=== PATIENT | male | born 1970 | race Caucasian/White ===

== ENCOUNTER 2016-11-19 09:30 | Day surgery (SDC) | payer OTHER ==
[~2016-11-19] VITALS: Ht 193 cm; Wt 92.3 kg
[~2016-11-19 09:30] MED LIST: PERCT PO; SODIUM CHLORIDE 0.9% 1,000 ML IV ONE
[2016-11-19 11:50] VITALS: BP 116/67
[2016-11-19] MEDS ORDERED: IOHEXOL 300 MG/ML 10 ML VIAL ONE (11:54)
[2016-11-19] MEDS ORDERED: SODIUM BICARBONATE 50 MEQ/50 ML VIAL ONE (11:54)
[2016-11-19] MEDS ORDERED: LIDOCAINE HCL/PF 1% 30 ML VIAL ONE (11:54)
[2016-11-19] MEDS ORDERED: FentaNYL CITRATE-PF 100 MCG/2 ML VIAL ONE (11:54)
[2016-11-19 12:05] VITALS: BP 140/82
[2016-11-19] MEDS ORDERED: LIDOCAINE 1% 30 ML/SOD BICARB 8.4% 4 ML SQ ONE (12:15)
[2016-11-19] MEDS ORDERED: IOHEXOL 300 MG/ML 10 ML VIAL IARTIC ONE (12:15)
[2016-11-19] MEDS ORDERED: FentaNYL CITRATE-PF 100 MCG/2 ML VIAL IVP ONE (12:15)
== END 2016-11-19 12:55 | disposition home or self-care (01) ==
LOC: SDS 09:30
PROVIDERS: ATTEND Physical Medicine & Rehabilitation Pain Medicine
DX: M54.16 Radiculopathy, lumbar region (principal)
CPT/HCPCS: 64483; J1040; J3010; J3490 ×2; J7030; Q9967